=== PATIENT | male | born 1950 | race Caucasian/White ===

== ENCOUNTER 2019-08-07 06:32 | Inpatient (IN) ==
[2019-08-07] MEDS ORDERED: Ropivacaine/PF 0.5% 30 ML VIAL ONE ×2 (06:48→07:21)
[2019-08-07] MEDS ORDERED: ROPIVACAINE/PF/NS 0.25% 1 EACH SYRINGE INTRAART ONE ×2 (06:49→07:22)
[2019-08-07] MEDS ORDERED: Acetaminophen IV 1,000 MG/100 ML INFUS..BTL IVPB ONE (07:09)
[2019-08-07] MEDS ORDERED: Albuterol 2.5 MG/3 ML NEBULIZER IH PRN (07:10)
[2019-08-07] MEDS ORDERED: CeFAZolin Syr 2,000MG/20 ML 2,000 MG/20 ML SYRINGE IVPB ONE (07:10)
[2019-08-07] MEDS ORDERED: Celecoxib 100 MG CAPSULE PO ONE (07:11)
[2019-08-07] MEDS ORDERED: Pregabalin 75 MG CAPSULE PO ONE (07:11)
[2019-08-07] MEDS ORDERED: Ringers Solution, Lactated 1,000 ML IVC SCH ×3 (07:15→10:56)
[2019-08-07] MEDS ORDERED: *HR* Midazolam HCl 2 MG/2 ML VIAL ONE (07:17)
[2019-08-07] MEDS ORDERED: *HR* FentaNYL (PF) 100 MCG/2 ML VIAL ONE (07:17)
[2019-08-07] MEDS ORDERED: *HR* Propofol 200 MG/20 ML VIAL IVP ONE (07:17)
[2019-08-07] MEDS ORDERED: Ethanol\\Acetic Acid\\Na Ace\\Ben 1,000 ML IRRIG.SOLN IR ONE (07:18)
[2019-08-07] MEDS ORDERED: Ondansetron 4 MG/2 ML VIAL IVP ONE (07:19)
[2019-08-07] MEDS ORDERED: *HR* OxyCODONE Immed Rel 5 MG TABLET PO PRN ×2 (07:19→10:56)
[2019-08-07] MEDS ORDERED: Lidocaine -MPF 2% 2 ML VIAL ONE (07:19)
[2019-08-07] MEDS ORDERED: Lidocaine HCL 4 ML Topical Solution (Laryng-O-Jet Kit Sterile Pak) TP ONE (08:09)
[2019-08-07] MEDS ORDERED: *HR* Succinylcholine 200 MG/10 ML VIAL IVP ONE (08:13)
[2019-08-07] MEDS ORDERED: Dexamethasone 4 MG/ML VIAL ONE (08:20)
[2019-08-07] MEDS ORDERED: *HR* PHENYLEPHRINE 1,000 MCG/10 ML SYRINGE IVP ONE (08:20)
[2019-08-07] MEDS ORDERED: Ondansetron 4 MG/2 ML VIAL ONE (08:20)
[2019-08-07 10:22] LABS: Hematocrit 33.6 % (37.5-50.1)
[2019-08-07] MEDS ORDERED: D5% in Water 1,000 ML IVC PRN (10:56)
[2019-08-07] MEDS ORDERED: traMADol 50 MG TABLET PO PRN (10:56)
[2019-08-07] MEDS ORDERED: MOM Conc 10 ML UD.LIQ PO PRN (10:56)
[2019-08-07] MEDS ORDERED: Sennosides 8.6 MG TABLET PO PRN (10:56)
[2019-08-07] MEDS ORDERED: HALOPERIDOL DECANOATE IM SCH (10:56)
[2019-08-07] MEDS ORDERED: Pregabalin 50 MG CAPSULE PO SCH (10:56)
[2019-08-07] MEDS ORDERED: Temazepam 15 MG CAPSULE PO PRN (10:56)
[2019-08-07] MEDS ORDERED: Acetaminophen 325 MG TABLET PO PRN (10:56)
[2019-08-07] MEDS ORDERED: Ondansetron 4 MG/2 ML VIAL IVP PRN (10:56)
[2019-08-07] MEDS ORDERED: *HR* Dextrose 50 % in Water (Syg) 50 ML SYRINGE IVP PRN (10:56)
[2019-08-07] MEDS ORDERED: *HR* OxyCODONE/APAP 5/325 TABLET PO PRN (10:56)
[2019-08-07] MEDS ORDERED: Dextrose Gel 15 GM/37.5 ML TUBE PO PRN ×2 (10:56)
[2019-08-07] MEDS: ARIPiprazole 10 MG TABLET PO SCH (16:02)
[2019-08-07] MEDS: Aspirin Enteric Coated 81 MG Tablet PO SCH (16:02)
[2019-08-07] MEDS: cloNIDine HCl 0.1 MG TABLET PO SCH ×3 (16:02→22:09)
[2019-08-07] MEDS: Capsaicin 0.025% 60 GM TUBE TP SCH ×2 (16:03→23:03)
[2019-08-07] MEDS: Cholecalciferol (D-3) 1,000 UNIT (25MCG) TABLET PO SCH (16:03)
[2019-08-07] MEDS: Insulin LISPRO 300 UNITS/3 ML VIAL SQ SCH ×2 (16:03→16:26)
[2019-08-07] MEDS: Multivit/Ca/Min/Fe/FA 1 TAB TABLET PO SCH (16:03)
[2019-08-07] MEDS: *HR* Metformin 500 MG TABLET PO SCH (16:26)
[2019-08-07] MEDS: GlipiZIDE 5 MG TABLET PO SCH (16:26)
[2019-08-07] MEDS ORDERED: *HR* Enoxaparin 30 MG/0.3 ML SYRINGE SQ SCH (18:00)
[2019-08-07] MEDS ORDERED: Insulin LISPRO 300 UNITS/3 ML VIAL SQ SCH (21:00)
[2019-08-07] MEDS ORDERED: traZODone 50 MG TABLET PO SCH (21:00)
[2019-08-07] MEDS: Pregabalin 50 MG CAPSULE PO SCH (22:09)
[2019-08-07] MEDS: *HR* Enoxaparin 30 MG/0.3 ML SYRINGE SQ SCH (22:11)
[2019-08-08] MEDS: *HR* Enoxaparin 30 MG/0.3 ML SYRINGE SQ SCH (04:59)
[2019-08-08 05:57] LABS: Hematocrit 32.6 % (37.5-50.1); Hemoglobin 11.2 g/dL (12.9-16.9)
[2019-08-08 06:14] LABS: BUN/Creatinine Ratio 19 (6-26); Blood Urea Nitrogen 21 mg/dL (8-23); Calcium 9.3 mg/dL (8.6-10.3); Carbon Dioxide 30 mEq/L (23-29); Chloride 103 mEq/L (98-107); Glucose 149 mg/dL (70-105); Osmolality,Calculated 296 (280-300); Potassium 4.2 mEq/L (3.5-5.1); Sodium 140 mEq/L (136-145); eGFR For African Americans > 60 (> 60); eGFR For Non-African Americans > 60 (> 60)
[2019-08-08 06:49] VITALS: BP 124/78
[2019-08-08] MEDS: Pregabalin 50 MG CAPSULE PO SCH (07:52)
[2019-08-08] MEDS: Capsaicin 0.025% 60 GM TUBE TP SCH (07:52)
[2019-08-08] MEDS ORDERED: Pregabalin 50 MG CAPSULE PO SCH (08:00)
[2019-08-08] MEDS: Multivit/Ca/Min/Fe/FA 1 TAB TABLET PO SCH (08:12)
[2019-08-08] MEDS: GlipiZIDE 5 MG TABLET PO SCH (08:13)
[2019-08-08] MEDS: Cholecalciferol (D-3) 1,000 UNIT (25MCG) TABLET PO SCH (08:13)
[2019-08-08] MEDS: *HR* Metformin 500 MG TABLET PO SCH (08:13)
[2019-08-08] MEDS: ARIPiprazole 10 MG TABLET PO SCH (08:13)
[2019-08-08] MEDS: Aspirin Enteric Coated 81 MG Tablet PO SCH (08:13)
[2019-08-08] MEDS: cloNIDine HCl 0.1 MG TABLET PO SCH (08:13)
[2019-08-08] MEDS: Insulin LISPRO 300 UNITS/3 ML VIAL SQ SCH (08:14)
[2019-08-08] MEDS ORDERED: Tiotropium 18 MCG inhalation IH SCH (10:00)
== END 2019-08-08 12:55 | DRG 483 ==
LOC: SAMDAY 06:32 → 2ANU 09:51 → 3NENU 10:31
PROVIDERS: ADMIT Orthopaedic Surgery; ATTEND Orthopaedic Surgery

== ENCOUNTER 2020-01-15 05:46 | Inpatient (IN) ==
[2020-01-15] MEDS ORDERED: *HR* FentaNYL (PF) 100 MCG/2 ML VIAL IVP ONE ×2 (06:15→07:18)
[2020-01-15] MEDS ORDERED: *HR* Propofol 200 MG/20 ML VIAL IVP ONE (07:15)
[2020-01-15] MEDS ORDERED: 0.9 % Sodium Chloride 1,000 ML IVC STA (07:28)
[2020-01-15] MEDS ORDERED: Gentamicin 90 MG in 0.9 % Sodium Chloride 100 ML IVPB ONE (07:49)
[2020-01-15] MEDS ORDERED: ceFAZolin 1,000 MG in Water for inj. (sterile) 10 ML IVP ONE (07:49)
[2020-01-15 08:41] LABS: Basophils % 0.4 %; Eosinophils # 0.3 K/mcL (0.0-0.6); Eosinophils % 2.6 %; Hematocrit 31.6 % (37.5-50.1); Hemoglobin 10.1 g/dL (12.9-16.9); Immature Granulocytes % 0.3 % (0-4); Lymphocytes # 1.4 K/mcL (0.6-4.6); Lymphocytes % 13.4 %; Mean Corpuscular Hemoglobin 28.5 pg (28.0-33.3); Mean Corpuscular Volume 89.3 fL (83.0-100.0); Mean Platelet Volume 10.5 fL (9.4-12.4); Monocytes # 0.6 K/mcL (0.0-1.3); Neutrophils # 7.9 K/mcL (1.6-8.9); Platelet Count 225 K/mcL (140-400); Red Blood Count 3.54 M/mcL (4.19-5.50); Segmented Neutrophils % 77.3 %; White Blood Count 10.2 K/mcL (4.3-11.1)
[2020-01-15 08:57] LABS: BUN/Creatinine Ratio 27 (6-26); Blood Urea Nitrogen 31 mg/dL (8-23); Calcium 8.6 mg/dL (8.6-10.3); Carbon Dioxide 25 mEq/L (23-29); Chloride 109 mEq/L (98-107); Glucose 104 mg/dL (70-105); Osmolality,Calculated 297 (280-300); Potassium 4.3 mEq/L (3.5-5.1); Sodium 140 mEq/L (136-145); eGFR For African Americans > 60 (> 60); eGFR For Non-African Americans > 60 (> 60)
[2020-01-15] MEDS ORDERED: Ondansetron 4 MG/2 ML VIAL IVP PRN (10:18)
[2020-01-15] MEDS ORDERED: Naloxone 0.4 MG/ML INJ IVP PRN (10:18)
[2020-01-15] MEDS ORDERED: Dextrose Gel 15 GM/37.5 ML TUBE PO PRN ×2 (10:23)
[2020-01-15] MEDS ORDERED: D5% in Water 1,000 ML IVC PRN (10:23)
[2020-01-15] MEDS ORDERED: *HR* Dextrose 50 % in Water (Syg) 50 ML SYRINGE IVP PRN (10:23)
[2020-01-15 12:11] LABS: Estimated Average Glucose 143 mg/dl
[2020-01-15] MEDS: Insulin LISPRO 300 UNITS/3 ML VIAL SQ SCH ×3 (13:04→23:39)
[2020-01-15] MEDS: 0.9 % Sodium Chloride 1,000 ML IVC SCH (13:13)
[2020-01-15] MEDS ORDERED: Haloperidol Lactate 5 MG/ML VIAL IVP PRN (15:37)
[2020-01-15] MEDS: *HR* Heparin 5,000 UNIT/ML VIAL SQ SCH ×2 (18:16→23:39)
[2020-01-15] MEDS ORDERED: *HR* LORazepam 2 MG/ML VIAL IM STA (19:32)
[2020-01-15] MEDS ORDERED: *HR* HYDROmorphone (PF) 1 MG/ML SYRINGE IVP ONE ×2 (20:25)
[2020-01-15 22:07] LABS: Basophils % 0.4 %; Eosinophils % 0.4 %; Hemoglobin 10.6 g/dL (12.9-16.9); Immature Granulocytes % 0.4 % (0-4); Lymphocytes # 0.8 K/mcL (0.6-4.6); Lymphocytes % 9.2 %; Mean Corpuscular HGB Conc 32.1 g/dL (31.6-35.5); Mean Corpuscular Hemoglobin 27.9 pg (28.0-33.3); Mean Corpuscular Volume 86.8 fL (83.0-100.0); Mean Platelet Volume 10.1 fL (9.4-12.4); Monocytes # 0.7 K/mcL (0.0-1.3); Monocytes % 8.4 %; Neutrophils # 6.7 K/mcL (1.6-8.9); Platelet Count 235 K/mcL (140-400); Red Cell Distribution Width 15.8 % (11.5-14.5); Segmented Neutrophils % 81.2 %; White Blood Count 8.2 K/mcL (4.3-11.1)
[2020-01-15] MEDS ORDERED: Acetaminophen IV 1,000 MG/100 ML INFUS..BTL IVPB PRN (22:20)
[2020-01-15 22:29] LABS: Alanine Aminotransferase 9 Units/L (7-52); Albumin 3.7 g/dL (3.5-5.7); Albumin/Globulin Ratio 1.3 (1.1-2.2); Alkaline Phosphatase 171 Units/L (34-104); Aspartate Amino Transferase 14 Units/L (13-39); BUN/Creatinine Ratio 24 (6-26); Bilirubin,Total 0.5 mg/dL (0.3-1.0); Blood Urea Nitrogen 23 mg/dL (8-23); Calcium 9.1 mg/dL (8.6-10.3); Carbon Dioxide 24 mEq/L (23-29); Chloride 107 mEq/L (98-107); Globulin 2.8 g/dL (2.4-3.5); Glucose 145 mg/dL (70-105); Osmolality,Calculated 294 (280-300); Potassium 4.2 mEq/L (3.5-5.1); Sodium 139 mEq/L (136-145); Total Protein 6.5 g/dL (6.4-8.9); eGFR For African Americans > 60 (> 60); eGFR For Non-African Americans > 60 (> 60)
[2020-01-15] MEDS ORDERED: *HR* OxyCODONE Immed Rel 5 MG TABLET PO PRN (22:36)
[2020-01-15 22:42] LABS: Thyroid Stimulating Hormone 0.988 mcIU/mL (0.340-5.600)
[2020-01-16 02:49] LABS: Bilirubin,Urine Negative (Negative); Blood,Urine Negative (Negative); Clarity,Urine Clear (Clear); Color,Urine Yellow (Yellow); Glucose,Urine (UA) Normal (Normal); Ketones,Urine 15 mg/dL (Negative); Leukocyte Esterase,Urine Negative (Negative); Nitrite,Urine Negative (Negative); PH,Urine 6.5 pH Units (5.0-8.0); Protein,Urine Negative (Neg-Trace); Specific Gravity,Urine 1.021 (1.010-1.025); Urobilinogen,Urine Normal (Normal)
[2020-01-16 04:23] LABS: Basophils % 0.4 %; Eosinophils # 0.1 K/mcL (0.0-0.6); Eosinophils % 1.3 %; Hemoglobin 9.9 g/dL (12.9-16.9); Immature Granulocytes % 0.3 % (0-4); Lymphocytes # 1.1 K/mcL (0.6-4.6); Lymphocytes % 13.9 %; Mean Corpuscular HGB Conc 31.9 g/dL (31.6-35.5); Mean Corpuscular Hemoglobin 27.7 pg (28.0-33.3); Mean Corpuscular Volume 86.8 fL (83.0-100.0); Mean Platelet Volume 10.3 fL (9.4-12.4); Monocytes # 0.9 K/mcL (0.0-1.3); Monocytes % 12.1 %; Neutrophils # 5.5 K/mcL (1.6-8.9); Platelet Count 231 K/mcL (140-400); Red Blood Count 3.57 M/mcL (4.19-5.50); White Blood Count 7.6 K/mcL (4.3-11.1)
[2020-01-16 04:36] LABS: VBG HCO3 26 mEq/L (21-27); VBG PCO2 36 mmHg (41-51); VBG PH 7.47 pH Units (7.32-7.42); VBG PO2 117 mmHg (25-50)
[2020-01-16 04:43] LABS: BUN/Creatinine Ratio 21 (6-26); Blood Urea Nitrogen 23 mg/dL (8-23); Carbon Dioxide 26 mEq/L (23-29); Chloride 106 mEq/L (98-107); Glucose 118 mg/dL (70-105); Magnesium 1.5 mg/dL (1.6-2.6); Osmolality,Calculated 291 (280-300); Potassium 3.9 mEq/L (3.5-5.1); Sodium 138 mEq/L (136-145); eGFR For African Americans > 60 (> 60); eGFR For Non-African Americans > 60 (> 60)
[2020-01-16] MEDS: Insulin LISPRO 300 UNITS/3 ML VIAL SQ SCH ×3 (06:09→17:18)
[2020-01-16] MEDS: *HR* Heparin 5,000 UNIT/ML VIAL SQ SCH ×2 (09:59→17:18)
[2020-01-16] MEDS: Isosorbide MONOnitrate (24 HR) 30 MG TAB.ER.24H PO SCH (10:11)
[2020-01-16] MEDS: haloperidoL 5 MG TABLET PO SCH ×2 (10:11→14:44)
[2020-01-16] MEDS: ARIPiprazole 10 MG TABLET PO SCH (10:12)
[2020-01-16 10:48] LABS: ABG Base Excess 2 mEq/L (-2 to 3); ABG HCO3 27 mEq/L (21-27); ABG Oxygen Saturation 92 % (95-98); ABG PCO2 41 mmHg (35-45); ABG PH 7.43 pH Units (7.32-7.45); ABG PO2 62 mmHg (85-104); ABG TCO2 28 mEq/L (20-26)
[2020-01-16] MEDS ORDERED: Albuterol 2.5 MG/3 ML NEBULIZER IH PRN (10:53)
[2020-01-16] MEDS ORDERED: ROPIVACAINE/PF/NS 0.25% 1 EACH SYRINGE INTRAART ONE (12:53)
[2020-01-16] MEDS ORDERED: Ropivacaine/PF 0.5% 30 ML VIAL ONE (12:53)
[2020-01-16] MEDS ORDERED: *HR* Labetalol 20 MG/4 ML SYRINGE IVP PRN (12:56)
[2020-01-16] MEDS ORDERED: *HR* HYDROmorphone (PF) 1 MG/ML SYRINGE IVP PRN (12:56)
[2020-01-16] MEDS ORDERED: *HR* Promethazine 25 MG/ML VIAL IVP PRN (12:56)
[2020-01-16] MEDS ORDERED: Ondansetron 4 MG/2 ML VIAL IVP PRN (12:56)
[2020-01-16] MEDS: 0.9 % Sodium Chloride 1,000 ML IVC SCH (13:00)
[2020-01-16] MEDS ORDERED: *HR* FentaNYL (PF) 100 MCG/2 ML VIAL ONE (13:13)
[2020-01-16] MEDS ORDERED: *HR* Propofol 200 MG/20 ML VIAL IVP ONE (13:13)
[2020-01-16] MEDS ORDERED: *HR* Midazolam HCl 2 MG/2 ML VIAL ONE (13:13)
[2020-01-16] MEDS ORDERED: Dexamethasone 4 MG/ML VIAL ONE (13:14)
[2020-01-16] MEDS ORDERED: Ondansetron 4 MG/2 ML VIAL ONE (13:14)
[2020-01-16] MEDS ORDERED: Lidocaine -MPF 1% 5 ML AMPUL ONE (13:14)
[2020-01-16] MEDS: cloNIDine HCL 0.1 MG TABLET PO SCH ×2 (14:44→19:54)
[2020-01-16] MEDS: Tiotropium 18 MCG inhalation IH SCH (19:50)
[2020-01-16] MEDS ORDERED: haloperidoL 5 MG TABLET PO SCH (21:00)
[2020-01-17] MEDS: *HR* Heparin 5,000 UNIT/ML VIAL SQ SCH ×4 (01:01→23:05)
[2020-01-17] MEDS: Insulin LISPRO 300 UNITS/3 ML VIAL SQ SCH ×4 (01:03→21:19)
[2020-01-17] MEDS ORDERED: Lidocaine -MPF 2% 2 ML VIAL ONE (08:55)
[2020-01-17] MEDS ORDERED: Ondansetron 4 MG/2 ML VIAL ONE (08:55)
[2020-01-17] MEDS ORDERED: *HR* FentaNYL (PF) 100 MCG/2 ML VIAL ONE (08:55)
[2020-01-17] MEDS ORDERED: Dexamethasone 4 MG/ML VIAL ONE (08:55)
[2020-01-17] MEDS ORDERED: *HR* Midazolam HCl 2 MG/2 ML VIAL ONE (08:55)
[2020-01-17] MEDS ORDERED: *HR* Propofol 200 MG/20 ML VIAL IVP ONE (08:55)
[2020-01-17] MEDS ORDERED: PARoxetine 30 MG TABLET PO SCH (09:00)
[2020-01-17] MEDS ORDERED: Metoprolol XL (24 HR) Succ 25 MG TAB.ER.24H PO SCH (09:00)
[2020-01-17] MEDS: Isosorbide MONOnitrate (24 HR) 30 MG TAB.ER.24H PO SCH (09:03)
[2020-01-17] MEDS: haloperidoL 5 MG TABLET PO SCH ×3 (09:03→21:03)
[2020-01-17] MEDS: cloNIDine HCL 0.1 MG TABLET PO SCH ×3 (09:03→21:01)
[2020-01-17] MEDS: ARIPiprazole 10 MG TABLET PO SCH (09:05)
[2020-01-17] MEDS ORDERED: CeFAZolin Syr 2,000MG/20 ML 2,000 MG/20 ML SYRINGE IVPB ONE (09:39)
[2020-01-17] MEDS ORDERED: *HR* Succinylcholine 200 MG/10 ML VIAL IVP ONE (09:53)
[2020-01-17] MEDS ORDERED: Lidocaine HCL 4 ML Topical Solution (Laryng-O-Jet Kit Sterile Pak) TP ONE (09:55)
[2020-01-17] MEDS ORDERED: *HR* PHENYLEPHRINE 1,000 MCG/10 ML SYRINGE IVP ONE (10:16)
[2020-01-17] MEDS ORDERED: Naloxone 0.4 MG/ML INJ IVP PRN (13:14)
[2020-01-17] MEDS ORDERED: Dextrose Gel 15 GM/37.5 ML TUBE PO PRN ×4 (13:14→16:52)
[2020-01-17] MEDS ORDERED: D5% in Water 1,000 ML IVC PRN ×2 (13:14→16:52)
[2020-01-17] MEDS ORDERED: Ondansetron 4 MG/2 ML VIAL IVP PRN ×2 (13:14)
[2020-01-17] MEDS ORDERED: Acetaminophen IV 1,000 MG/100 ML INFUS..BTL IVPB PRN (13:14)
[2020-01-17] MEDS ORDERED: *HR* Labetalol 20 MG/4 ML SYRINGE IVP PRN (13:14)
[2020-01-17] MEDS ORDERED: Albuterol 2.5 MG/3 ML NEBULIZER IH PRN (13:14)
[2020-01-17] MEDS ORDERED: *HR* Dextrose 50 % in Water (Syg) 50 ML SYRINGE IVP PRN ×2 (13:14→16:52)
[2020-01-17] MEDS ORDERED: *HR* Promethazine 25 MG/ML VIAL IVP PRN (13:14)
[2020-01-17] MEDS ORDERED: Haloperidol Lactate 5 MG/ML VIAL IVP PRN (13:14)
[2020-01-17] MEDS ORDERED: haloperidoL 5 MG TABLET PO ONE (15:06)
[2020-01-17] MEDS ORDERED: Acetaminophen 325 MG TABLET PO PRN (17:04)
[2020-01-17] MEDS ORDERED: Capsaicin 0.025% 60 GM TUBE TP PRN (17:37)
[2020-01-17] MEDS ORDERED: Insulin LISPRO 300 UNITS/3 ML VIAL SQ SCH (18:00)
[2020-01-17] MEDS: polyethylene glycoL 3350 17 GM POWD.PACK PO SCH (18:16)
[2020-01-17] MEDS: amLODIPine 5 MG TABLET PO SCH (18:16)
[2020-01-17] MEDS: Tiotropium 18 MCG inhalation IH SCH (20:52)
[2020-01-17] MEDS: traZODone 50 MG TABLET PO SCH (21:02)
[2020-01-17] MEDS: Ammonium Lactate 30 APPL/225 GM BOTTLE TP SCH (21:03)
[2020-01-17] MEDS: Pregabalin 50 MG CAPSULE PO SCH (23:05)
[2020-01-18 04:38] LABS: Basophils % 0.2 %; Eosinophils % 0.1 %; Hematocrit 27.8 % (37.5-50.1); Hemoglobin 8.9 g/dL (12.9-16.9); Immature Granulocytes % 0.5 % (0-4); Lymphocytes # 1.1 K/mcL (0.6-4.6); Lymphocytes % 10.8 %; Mean Corpuscular Hemoglobin 27.7 pg (28.0-33.3); Mean Corpuscular Volume 86.6 fL (83.0-100.0); Mean Platelet Volume 10.3 fL (9.4-12.4); Monocytes % 9.7 %; Neutrophils # 8.1 K/mcL (1.6-8.9); Platelet Count 242 K/mcL (140-400); Red Blood Count 3.21 M/mcL (4.19-5.50); Red Cell Distribution Width 15.9 % (11.5-14.5); Segmented Neutrophils % 78.7 %; White Blood Count 10.2 K/mcL (4.3-11.1)
[2020-01-18 04:56] LABS: % Iron Saturation 5 % (20-55); BUN/Creatinine Ratio 17 (6-26); Blood Urea Nitrogen 16 mg/dL (8-23); Calcium 8.8 mg/dL (8.6-10.3); Carbon Dioxide 26 mEq/L (23-29); Chloride 106 mEq/L (98-107); Glucose 129 mg/dL (70-105); Iron 12 mcg/dL (65-175); Magnesium 1.7 mg/dL (1.6-2.6); Osmolality,Calculated 283 (280-300); Potassium 3.9 mEq/L (3.5-5.1); Sodium 135 mEq/L (136-145); Transferrin 165 mg/dL (203-362); eGFR For African Americans > 60 (> 60); eGFR For Non-African Americans > 60 (> 60)
[2020-01-18 05:13] LABS: Ferritin 146 ng/mL (20-250)
[2020-01-18 05:19] LABS: Folate 5.6 ng/mL (3.0-16.0)
[2020-01-18] MEDS: Metoprolol XL (24 HR) Succ 25 MG TAB.ER.24H PO SCH (08:24)
[2020-01-18] MEDS: *HR* Heparin 5,000 UNIT/ML VIAL SQ SCH ×2 (08:25→17:02)
[2020-01-18] MEDS: haloperidoL 5 MG TABLET PO SCH ×3 (08:26→20:32)
[2020-01-18] MEDS: PARoxetine 30 MG TABLET PO SCH (08:27)
[2020-01-18] MEDS: amLODIPine 5 MG TABLET PO SCH (08:27)
[2020-01-18] MEDS: Multivit/Ca/Min/Fe/FA 1 TAB TABLET PO SCH (08:27)
[2020-01-18] MEDS: Cholecalciferol (D-3) 1,000 UNIT (25MCG) TABLET PO SCH (08:27)
[2020-01-18] MEDS: cloNIDine HCL 0.1 MG TABLET PO SCH (08:28)
[2020-01-18] MEDS: ARIPiprazole 10 MG TABLET PO SCH (08:28)
[2020-01-18] MEDS: Isosorbide MONOnitrate (24 HR) 30 MG TAB.ER.24H PO SCH (08:29)
[2020-01-18] MEDS: Aspirin 81 MG TAB.CHEW PO SCH (08:30)
[2020-01-18] MEDS: Pregabalin 50 MG CAPSULE PO SCH ×3 (08:34→20:32)
[2020-01-18] MEDS ORDERED: lisinopriL 5 MG TABLET PO SCH (09:00)
[2020-01-18] MEDS: Insulin LISPRO 300 UNITS/3 ML VIAL SQ SCH ×4 (10:06→21:32)
[2020-01-18] MEDS: Ammonium Lactate 30 APPL/225 GM BOTTLE TP SCH ×2 (10:14→20:35)
[2020-01-18] MEDS ORDERED: 0.9 % Sodium Chloride 1,000 ML ONE (14:26)
[2020-01-18] MEDS ORDERED: 0.9 % Sodium Chloride 1,000 ML IV ONE (14:27)
[2020-01-18] MEDS ORDERED: 0.9 % Sodium Chloride 500 ML ONE (14:52)
[2020-01-18 15:11] LABS: Hematocrit 25.2 % (37.5-50.1); Hemoglobin 8.1 g/dL (12.9-16.9)
[2020-01-18] MEDS ORDERED: Iron Sucrose Complex 200 MG in 0.9 % Sodium Chloride 100 ML IVPB ONE (15:20)
[2020-01-18] MEDS ORDERED: 0.9 % Sodium Chloride 500 ML IV ONE (15:44)
[2020-01-18] MEDS: traZODone 50 MG TABLET PO SCH (20:32)
[2020-01-18] MEDS: Tiotropium 18 MCG inhalation IH SCH (20:37)
[2020-01-19] MEDS: *HR* Heparin 5,000 UNIT/ML VIAL SQ SCH ×3 (00:05→18:30)
[2020-01-19 01:39] LABS: Basophils % 0.2 %; Eosinophils # 0.1 K/mcL (0.0-0.6); Eosinophils % 0.8 %; Hematocrit 26.1 % (37.5-50.1); Hemoglobin 8.4 g/dL (12.9-16.9); Immature Granulocytes % 0.5 % (0-4); Lymphocytes # 1.1 K/mcL (0.6-4.6); Lymphocytes % 12.8 %; Mean Corpuscular HGB Conc 32.2 g/dL (31.6-35.5); Mean Corpuscular Hemoglobin 28.7 pg (28.0-33.3); Mean Corpuscular Volume 89.1 fL (83.0-100.0); Mean Platelet Volume 10.3 fL (9.4-12.4); Monocytes # 0.8 K/mcL (0.0-1.3); Monocytes % 9.9 %; Neutrophils # 6.3 K/mcL (1.6-8.9); Platelet Count 257 K/mcL (140-400); Red Blood Count 2.93 M/mcL (4.19-5.50); Red Cell Distribution Width 16.1 % (11.5-14.5); Segmented Neutrophils % 75.8 %; White Blood Count 8.3 K/mcL (4.3-11.1)
[2020-01-19 01:55] LABS: BUN/Creatinine Ratio 19 (6-26); Blood Urea Nitrogen 20 mg/dL (8-23); Calcium 8.3 mg/dL (8.6-10.3); Carbon Dioxide 24 mEq/L (23-29); Chloride 109 mEq/L (98-107); Glucose 126 mg/dL (70-105); Magnesium 1.6 mg/dL (1.6-2.6); Osmolality,Calculated 292 (280-300); Potassium 3.9 mEq/L (3.5-5.1); Sodium 139 mEq/L (136-145); eGFR For African Americans > 60 (> 60); eGFR For Non-African Americans > 60 (> 60)
[2020-01-19] MEDS: Cholecalciferol (D-3) 1,000 UNIT (25MCG) TABLET PO SCH (07:59)
[2020-01-19] MEDS: ARIPiprazole 10 MG TABLET PO SCH (08:00)
[2020-01-19] MEDS: Isosorbide MONOnitrate (24 HR) 30 MG TAB.ER.24H PO SCH (08:00)
[2020-01-19] MEDS: Aspirin 81 MG TAB.CHEW PO SCH (08:00)
[2020-01-19] MEDS: Metoprolol XL (24 HR) Succ 25 MG TAB.ER.24H PO SCH (08:00)
[2020-01-19] MEDS: PARoxetine 30 MG TABLET PO SCH (08:00)
[2020-01-19] MEDS: Multivit/Ca/Min/Fe/FA 1 TAB TABLET PO SCH (08:01)
[2020-01-19] MEDS: haloperidoL 5 MG TABLET PO SCH ×2 (08:01→21:35)
[2020-01-19] MEDS: Insulin LISPRO 300 UNITS/3 ML VIAL SQ SCH ×4 (08:04→21:21)
[2020-01-19] MEDS: Ammonium Lactate 30 APPL/225 GM BOTTLE TP SCH ×2 (08:04→21:36)
[2020-01-19] MEDS: Pregabalin 50 MG CAPSULE PO SCH ×3 (08:06→21:34)
[2020-01-19] MEDS: cloNIDine HCL 0.1 MG TABLET PO SCH ×3 (10:18→21:34)
[2020-01-19] MEDS ORDERED: Furosemide 40 MG/4 ML VIAL IVP ONE (12:54)
[2020-01-19] MEDS: polyethylene glycoL 3350 17 GM POWD.PACK PO SCH (18:30)
[2020-01-19] MEDS: Tiotropium 18 MCG inhalation IH SCH (21:19)
[2020-01-19] MEDS: traZODone 50 MG TABLET PO SCH (21:34)
[2020-01-20] MEDS: *HR* Heparin 5,000 UNIT/ML VIAL SQ SCH ×3 (01:09→17:01)
[2020-01-20] MEDS: Cholecalciferol (D-3) 1,000 UNIT (25MCG) TABLET PO SCH (08:05)
[2020-01-20] MEDS: ARIPiprazole 10 MG TABLET PO SCH (08:05)
[2020-01-20] MEDS: cloNIDine HCL 0.1 MG TABLET PO SCH ×3 (08:05→20:30)
[2020-01-20] MEDS: Metoprolol XL (24 HR) Succ 25 MG TAB.ER.24H PO SCH (08:06)
[2020-01-20] MEDS: Isosorbide MONOnitrate (24 HR) 30 MG TAB.ER.24H PO SCH (08:06)
[2020-01-20] MEDS: Multivit/Ca/Min/Fe/FA 1 TAB TABLET PO SCH (08:06)
[2020-01-20] MEDS: PARoxetine 30 MG TABLET PO SCH (08:07)
[2020-01-20] MEDS: Insulin LISPRO 300 UNITS/3 ML VIAL SQ SCH ×4 (08:07→20:27)
[2020-01-20] MEDS: Aspirin 81 MG TAB.CHEW PO SCH (08:07)
[2020-01-20] MEDS: Pregabalin 50 MG CAPSULE PO SCH ×3 (08:14→20:31)
[2020-01-20] MEDS: haloperidoL 5 MG TABLET PO SCH ×3 (08:22→20:30)
[2020-01-20] MEDS: Sennosides/Docusate Sodium TABLET PO SCH ×2 (08:26→20:30)
[2020-01-20] MEDS: Ammonium Lactate 30 APPL/225 GM BOTTLE TP SCH ×2 (14:20→20:32)
[2020-01-20] MEDS: Tiotropium 18 MCG inhalation IH SCH (14:21)
[2020-01-20] MEDS: traZODone 50 MG TABLET PO SCH (20:31)
[2020-01-21] MEDS: *HR* Heparin 5,000 UNIT/ML VIAL SQ SCH ×3 (00:20→15:30)
[2020-01-21 01:11] LABS: Basophils % 0.2 %; Eosinophils # 0.2 K/mcL (0.0-0.6); Eosinophils % 2.7 %; Hematocrit 27.1 % (37.5-50.1); Hemoglobin 8.8 g/dL (12.9-16.9); Immature Granulocytes % 0.5 % (0-4); Lymphocytes # 1.5 K/mcL (0.6-4.6); Mean Corpuscular HGB Conc 32.5 g/dL (31.6-35.5); Mean Corpuscular Hemoglobin 28.7 pg (28.0-33.3); Mean Corpuscular Volume 88.3 fL (83.0-100.0); Mean Platelet Volume 10.1 fL (9.4-12.4); Monocytes # 0.8 K/mcL (0.0-1.3); Monocytes % 9.6 %; Neutrophils # 5.5 K/mcL (1.6-8.9); Platelet Count 299 K/mcL (140-400); Red Blood Count 3.07 M/mcL (4.19-5.50); Red Cell Distribution Width 15.8 % (11.5-14.5); White Blood Count 8.1 K/mcL (4.3-11.1)
[2020-01-21 01:32] LABS: BUN/Creatinine Ratio 20 (6-26); Blood Urea Nitrogen 17 mg/dL (8-23); Calcium 8.9 mg/dL (8.6-10.3); Carbon Dioxide 25 mEq/L (23-29); Chloride 104 mEq/L (98-107); Glucose 134 mg/dL (70-105); Magnesium 1.5 mg/dL (1.6-2.6); Osmolality,Calculated 288 (280-300); Potassium 3.7 mEq/L (3.5-5.1); Sodium 137 mEq/L (136-145); eGFR For African Americans > 60 (> 60); eGFR For Non-African Americans > 60 (> 60)
[2020-01-21] MEDS: ARIPiprazole 10 MG TABLET PO SCH (08:54)
[2020-01-21] MEDS: PARoxetine 30 MG TABLET PO SCH (08:55)
[2020-01-21] MEDS: cloNIDine HCL 0.1 MG TABLET PO SCH ×3 (08:55→20:47)
[2020-01-21] MEDS: Cholecalciferol (D-3) 1,000 UNIT (25MCG) TABLET PO SCH (08:55)
[2020-01-21] MEDS: Sennosides/Docusate Sodium TABLET PO SCH ×2 (08:55→20:48)
[2020-01-21] MEDS: Multivit/Ca/Min/Fe/FA 1 TAB TABLET PO SCH (08:55)
[2020-01-21] MEDS: Insulin LISPRO 300 UNITS/3 ML VIAL SQ SCH ×4 (08:56→20:46)
[2020-01-21] MEDS: haloperidoL 5 MG TABLET PO SCH ×3 (08:56→20:48)
[2020-01-21] MEDS: Isosorbide MONOnitrate (24 HR) 30 MG TAB.ER.24H PO SCH (08:56)
[2020-01-21] MEDS: Aspirin 81 MG TAB.CHEW PO SCH (08:56)
[2020-01-21] MEDS: Metoprolol XL (24 HR) Succ 25 MG TAB.ER.24H PO SCH (08:56)
[2020-01-21] MEDS: Ammonium Lactate 30 APPL/225 GM BOTTLE TP SCH ×2 (10:26→20:48)
[2020-01-21] MEDS: Pregabalin 50 MG CAPSULE PO SCH ×3 (12:09→20:48)
[2020-01-21] MEDS ORDERED: Lactulose Oral Soln 20 GM/30 ML UDC PO ONE (14:47)
[2020-01-21] MEDS: polyethylene glycoL 3350 17 GM POWD.PACK PO SCH (17:33)
[2020-01-21] MEDS: Tiotropium 18 MCG inhalation IH SCH (20:01)
[2020-01-21] MEDS: traZODone 50 MG TABLET PO SCH (20:48)
[2020-01-22] MEDS: *HR* Heparin 5,000 UNIT/ML VIAL SQ SCH ×4 (00:05→22:05)
[2020-01-22 01:33] LABS: Basophils % 0.5 %; Eosinophils # 0.3 K/mcL (0.0-0.6); Eosinophils % 2.8 %; Hematocrit 30.2 % (37.5-50.1); Hemoglobin 9.8 g/dL (12.9-16.9); Immature Granulocytes % 0.7 % (0-4); Lymphocytes % 22.3 %; Mean Corpuscular HGB Conc 32.5 g/dL (31.6-35.5); Mean Corpuscular Hemoglobin 28.5 pg (28.0-33.3); Mean Corpuscular Volume 87.8 fL (83.0-100.0); Mean Platelet Volume 9.8 fL (9.4-12.4); Monocytes # 0.8 K/mcL (0.0-1.3); Monocytes % 8.8 %; Neutrophils # 5.8 K/mcL (1.6-8.9); Platelet Count 338 K/mcL (140-400); Red Blood Count 3.44 M/mcL (4.19-5.50); Red Cell Distribution Width 15.8 % (11.5-14.5); Segmented Neutrophils % 64.9 %; White Blood Count 8.9 K/mcL (4.3-11.1)
[2020-01-22 01:51] LABS: BUN/Creatinine Ratio 16 (6-26); Blood Urea Nitrogen 14 mg/dL (8-23); Carbon Dioxide 26 mEq/L (23-29); Chloride 102 mEq/L (98-107); Glucose 120 mg/dL (70-105); Magnesium 1.8 mg/dL (1.6-2.6); Osmolality,Calculated 286 (280-300); Potassium 4.2 mEq/L (3.5-5.1); Sodium 137 mEq/L (136-145); eGFR For African Americans > 60 (> 60); eGFR For Non-African Americans > 60 (> 60)
[2020-01-22] MEDS: ARIPiprazole 10 MG TABLET PO SCH (07:52)
[2020-01-22] MEDS: Metoprolol XL (24 HR) Succ 25 MG TAB.ER.24H PO SCH (07:53)
[2020-01-22] MEDS: Isosorbide MONOnitrate (24 HR) 30 MG TAB.ER.24H PO SCH (07:53)
[2020-01-22] MEDS: cloNIDine HCL 0.1 MG TABLET PO SCH ×3 (07:53→21:22)
[2020-01-22] MEDS: haloperidoL 5 MG TABLET PO SCH ×3 (07:55→21:22)
[2020-01-22] MEDS: Cholecalciferol (D-3) 1,000 UNIT (25MCG) TABLET PO SCH (07:56)
[2020-01-22] MEDS: PARoxetine 30 MG TABLET PO SCH (07:56)
[2020-01-22] MEDS: Sennosides/Docusate Sodium TABLET PO SCH ×2 (07:57→21:22)
[2020-01-22] MEDS: Aspirin 81 MG TAB.CHEW PO SCH (07:57)
[2020-01-22] MEDS: Multivit/Ca/Min/Fe/FA 1 TAB TABLET PO SCH (07:57)
[2020-01-22] MEDS: Pregabalin 50 MG CAPSULE PO SCH ×3 (07:57→22:05)
[2020-01-22] MEDS: Insulin LISPRO 300 UNITS/3 ML VIAL SQ SCH ×4 (07:57→20:58)
[2020-01-22] MEDS: Ammonium Lactate 30 APPL/225 GM BOTTLE TP SCH ×2 (07:58→21:23)
[2020-01-22] MEDS: traZODone 50 MG TABLET PO SCH (21:22)
[2020-01-23 05:05] LABS: Basophils % 0.4 %; Eosinophils # 0.3 K/mcL (0.0-0.6); Eosinophils % 3.5 %; Hematocrit 31.4 % (37.5-50.1); Hemoglobin 9.8 g/dL (12.9-16.9); Immature Granulocytes % 0.8 % (0-4); Lymphocytes # 1.6 K/mcL (0.6-4.6); Lymphocytes % 18.4 %; Mean Corpuscular HGB Conc 31.2 g/dL (31.6-35.5); Mean Corpuscular Hemoglobin 27.3 pg (28.0-33.3); Mean Corpuscular Volume 87.5 fL (83.0-100.0); Mean Platelet Volume 9.9 fL (9.4-12.4); Monocytes # 0.8 K/mcL (0.0-1.3); Monocytes % 9.1 %; Neutrophils # 5.8 K/mcL (1.6-8.9); Platelet Count 376 K/mcL (140-400); Red Blood Count 3.59 M/mcL (4.19-5.50); Segmented Neutrophils % 67.8 %; White Blood Count 8.5 K/mcL (4.3-11.1)
[2020-01-23 05:20] LABS: BUN/Creatinine Ratio 16 (6-26); Blood Urea Nitrogen 15 mg/dL (8-23); Calcium 9.2 mg/dL (8.6-10.3); Carbon Dioxide 27 mEq/L (23-29); Chloride 104 mEq/L (98-107); Glucose 129 mg/dL (70-105); Magnesium 1.8 mg/dL (1.6-2.6); Osmolality,Calculated 289 (280-300); Sodium 138 mEq/L (136-145); eGFR For African Americans > 60 (> 60); eGFR For Non-African Americans > 60 (> 60)
[2020-01-23] MEDS: Isosorbide MONOnitrate (24 HR) 30 MG TAB.ER.24H PO SCH (07:46)
[2020-01-23] MEDS: cloNIDine HCL 0.1 MG TABLET PO SCH ×3 (07:47→20:38)
[2020-01-23] MEDS: ARIPiprazole 10 MG TABLET PO SCH (07:47)
[2020-01-23] MEDS: Multivit/Ca/Min/Fe/FA 1 TAB TABLET PO SCH (07:47)
[2020-01-23] MEDS: Cholecalciferol (D-3) 1,000 UNIT (25MCG) TABLET PO SCH (07:47)
[2020-01-23] MEDS: Sennosides/Docusate Sodium TABLET PO SCH ×2 (07:47→20:38)
[2020-01-23] MEDS: PARoxetine 30 MG TABLET PO SCH (07:47)
[2020-01-23] MEDS: *HR* Heparin 5,000 UNIT/ML VIAL SQ SCH ×3 (07:48→23:29)
[2020-01-23] MEDS: Metoprolol XL (24 HR) Succ 25 MG TAB.ER.24H PO SCH (07:48)
[2020-01-23] MEDS: Aspirin 81 MG TAB.CHEW PO SCH (07:48)
[2020-01-23] MEDS: Ammonium Lactate 30 APPL/225 GM BOTTLE TP SCH ×2 (07:49→20:38)
[2020-01-23] MEDS: Insulin LISPRO 300 UNITS/3 ML VIAL SQ SCH ×4 (07:49→20:38)
[2020-01-23] MEDS: Pregabalin 50 MG CAPSULE PO SCH ×3 (07:59→20:38)
[2020-01-23] MEDS: haloperidoL 5 MG TABLET PO SCH ×2 (08:10→20:38)
[2020-01-23] MEDS: haloperidoL 1 MG TABLET PO SCH (12:51)
[2020-01-23] MEDS ORDERED: Tdap (Boostrix) Vaccine 0.5 ML SYRINGE IM ONE (13:55)
[2020-01-23] MEDS: polyethylene glycoL 3350 17 GM POWD.PACK PO SCH (17:21)
[2020-01-23] MEDS: traZODone 50 MG TABLET PO SCH (20:38)
[2020-01-24] MEDS: Tiotropium 18 MCG inhalation IH SCH (08:00)
[2020-01-24] MEDS: Insulin LISPRO 300 UNITS/3 ML VIAL SQ SCH ×4 (08:03→20:29)
[2020-01-24] MEDS: Aspirin 81 MG TAB.CHEW PO SCH (08:04)
[2020-01-24] MEDS: *HR* Heparin 5,000 UNIT/ML VIAL SQ SCH ×2 (08:04→16:58)
[2020-01-24] MEDS: Cholecalciferol (D-3) 1,000 UNIT (25MCG) TABLET PO SCH (08:05)
[2020-01-24] MEDS: Pregabalin 50 MG CAPSULE PO SCH ×2 (08:05→16:58)
[2020-01-24] MEDS: Sennosides/Docusate Sodium TABLET PO SCH (08:05)
[2020-01-24] MEDS: Multivit/Ca/Min/Fe/FA 1 TAB TABLET PO SCH (08:05)
[2020-01-24] MEDS: PARoxetine 30 MG TABLET PO SCH (08:06)
[2020-01-24] MEDS: Metoprolol XL (24 HR) Succ 25 MG TAB.ER.24H PO SCH (09:49)
[2020-01-24] MEDS: ARIPiprazole 10 MG TABLET PO SCH (09:50)
[2020-01-24] MEDS: haloperidoL 1 MG TABLET PO SCH ×2 (09:50→13:34)
[2020-01-24] MEDS: Isosorbide MONOnitrate (24 HR) 30 MG TAB.ER.24H PO SCH (09:50)
[2020-01-24] MEDS: Ammonium Lactate 30 APPL/225 GM BOTTLE TP SCH (09:51)
[2020-01-24] MEDS: cloNIDine HCL 0.1 MG TABLET PO SCH ×2 (09:51→16:58)
[2020-01-24] MEDS ORDERED: *HR* FentaNYL (PF) 100 MCG/2 ML VIAL ONE (10:11)
[2020-01-24] MEDS ORDERED: Lidocaine -MPF 2% 2 ML VIAL ONE ×2 (10:11)
[2020-01-24] MEDS ORDERED: *HR* Midazolam HCl 2 MG/2 ML VIAL ONE (10:11)
[2020-01-24] MEDS ORDERED: Dexamethasone 4 MG/ML VIAL ONE (10:11)
[2020-01-24] MEDS ORDERED: Ondansetron 4 MG/2 ML VIAL ONE (10:11)
[2020-01-24] MEDS ORDERED: *HR* Propofol 200 MG/20 ML VIAL IVP ONE (10:11)
[2020-01-24] MEDS ORDERED: Haloperidol Lactate 5 MG/ML VIAL IVP PRN (17:20)
[2020-01-25 01:12] LABS: Basophils % 0.3 %; Eosinophils # 0.1 K/mcL (0.0-0.6); Eosinophils % 0.8 %; Hematocrit 32.5 % (37.5-50.1); Hemoglobin 10.6 g/dL (12.9-16.9); Immature Granulocytes % 0.9 % (0-4); Lymphocytes # 1.3 K/mcL (0.6-4.6); Lymphocytes % 13.6 %; Mean Corpuscular HGB Conc 32.6 g/dL (31.6-35.5); Mean Corpuscular Hemoglobin 28.4 pg (28.0-33.3); Mean Corpuscular Volume 87.1 fL (83.0-100.0); Mean Platelet Volume 10.1 fL (9.4-12.4); Monocytes # 1.1 K/mcL (0.0-1.3); Monocytes % 10.8 %; Neutrophils # 7.2 K/mcL (1.6-8.9); Platelet Count 396 K/mcL (140-400); Red Blood Count 3.73 M/mcL (4.19-5.50); Red Cell Distribution Width 15.4 % (11.5-14.5); Segmented Neutrophils % 73.6 %; White Blood Count 9.8 K/mcL (4.3-11.1)
[2020-01-25 01:32] LABS: BUN/Creatinine Ratio 15 (6-26); Blood Urea Nitrogen 14 mg/dL (8-23); Calcium 9.3 mg/dL (8.6-10.3); Carbon Dioxide 26 mEq/L (23-29); Chloride 101 mEq/L (98-107); Glucose 152 mg/dL (70-105); Magnesium 1.6 mg/dL (1.6-2.6); Osmolality,Calculated 285 (280-300); Phosphorous 2.8 mg/dL (2.7-4.5); Potassium 3.7 mEq/L (3.5-5.1); Sodium 136 mEq/L (136-145); eGFR For African Americans > 60 (> 60); eGFR For Non-African Americans > 60 (> 60)
[2020-01-25] MEDS: *HR* Heparin 5,000 UNIT/ML VIAL SQ SCH ×2 (06:21→09:21)
[2020-01-25] MEDS: PARoxetine 30 MG TABLET PO SCH (09:14)
[2020-01-25] MEDS: ARIPiprazole 10 MG TABLET PO SCH (09:14)
[2020-01-25] MEDS: Metoprolol XL (24 HR) Succ 25 MG TAB.ER.24H PO SCH (09:15)
[2020-01-25] MEDS: Isosorbide MONOnitrate (24 HR) 30 MG TAB.ER.24H PO SCH (09:18)
[2020-01-25] MEDS: Ammonium Lactate 30 APPL/225 GM BOTTLE TP SCH (09:19)
[2020-01-25] MEDS: cloNIDine HCL 0.1 MG TABLET PO SCH (09:19)
[2020-01-25] MEDS: Insulin LISPRO 300 UNITS/3 ML VIAL SQ SCH (09:20)
[2020-01-25] MEDS: Sennosides/Docusate Sodium TABLET PO SCH (09:20)
[2020-01-25] MEDS: haloperidoL 1 MG TABLET PO SCH (09:21)
[2020-01-25] MEDS: Aspirin 81 MG TAB.CHEW PO SCH (09:22)
[2020-01-25] MEDS: Multivit/Ca/Min/Fe/FA 1 TAB TABLET PO SCH (09:28)
[2020-01-25] MEDS: Cholecalciferol (D-3) 1,000 UNIT (25MCG) TABLET PO SCH (09:28)
[2020-01-25] MEDS: Pregabalin 50 MG CAPSULE PO SCH (09:30)
[2020-01-25] MEDS ORDERED: *HR* Propofol 200 MG/20 ML VIAL IVP ONE (11:17)
[2020-01-25] MEDS ORDERED: *HR* FentaNYL (PF) 100 MCG/2 ML VIAL ONE ×2 (11:17→12:23)
[2020-01-25] MEDS ORDERED: Lidocaine -MPF 2% 2 ML VIAL ONE (11:19)
[2020-01-25] MEDS ORDERED: CeFAZolin Syr 2,000MG/20 ML 2,000 MG/20 ML SYRINGE IVPB ONE (11:39)
[2020-01-25] MEDS ORDERED: Famotidine 20 MG/2 ML VIAL ONE (11:53)
[2020-01-25] MEDS ORDERED: Acetaminophen IV 1,000 MG/100 ML INFUS..BTL ONE (11:53)
[2020-01-25] MEDS ORDERED: Dexamethasone 4 MG/ML VIAL ONE (12:00)
[2020-01-25] MEDS ORDERED: Ondansetron 4 MG/2 ML VIAL ONE (12:00)
[2020-01-25] MEDS ORDERED: *HR* PHENYLEPHRINE 1,000 MCG/10 ML SYRINGE IVP ONE (12:14)
[2020-01-25] MEDS ORDERED: *HR* HYDROMORPHONE 2 MG/ML VIAL ONE (13:00)
[2020-01-25] MEDS ORDERED: Ondansetron 4 MG/2 ML VIAL IVP ONE (16:13)
[2020-01-25] MEDS ORDERED: *HR* HYDROmorphone PF 0.5 MG/0.5 ML SYRINGE IVP PRN (16:13)
[2020-01-25] MEDS ORDERED: *HR* Promethazine 25 MG/ML VIAL IVP PRN (17:47)
[2020-01-25] MEDS ORDERED: *HR* Dextrose 50 % in Water (Syg) 50 ML SYRINGE IVP PRN (17:47)
[2020-01-25] MEDS ORDERED: Haloperidol Lactate 5 MG/ML VIAL IVP PRN (17:47)
[2020-01-25] MEDS ORDERED: Dextrose Gel 15 GM/37.5 ML TUBE PO PRN ×2 (17:47)
[2020-01-25] MEDS ORDERED: Naloxone 0.4 MG/ML INJ IVP PRN (17:47)
[2020-01-25] MEDS ORDERED: Acetaminophen 325 MG TABLET PO PRN (17:47)
[2020-01-25] MEDS ORDERED: Capsaicin 0.025% 60 GM TUBE TP PRN (17:47)
[2020-01-25] MEDS ORDERED: Ondansetron 4 MG/2 ML VIAL IVP PRN ×2 (17:47)
[2020-01-25] MEDS ORDERED: D5% in Water 1,000 ML IVC PRN (17:47)
[2020-01-25] MEDS ORDERED: Albuterol 2.5 MG/3 ML NEBULIZER IH PRN (17:47)
[2020-01-25] MEDS ORDERED: traZODone 50 MG TABLET PO SCH (21:00)
[2020-01-25] MEDS ORDERED: Insulin LISPRO 300 UNITS/3 ML VIAL SQ SCH (21:00)
[2020-01-25] MEDS ORDERED: haloperidoL 5 MG TABLET PO SCH (21:00)
[2020-01-25] MEDS ORDERED: Pregabalin 50 MG CAPSULE PO SCH (22:00)
[2020-01-26 04:17] LABS: Hematocrit 31.2 % (37.5-50.1); Hemoglobin 9.9 g/dL (12.9-16.9); Mean Corpuscular HGB Conc 31.7 g/dL (31.6-35.5); Mean Corpuscular Hemoglobin 27.8 pg (28.0-33.3); Mean Corpuscular Volume 87.6 fL (83.0-100.0); Mean Platelet Volume 9.9 fL (9.4-12.4); Platelet Count 390 K/mcL (140-400); Red Blood Count 3.56 M/mcL (4.19-5.50); Red Cell Distribution Width 15.6 % (11.5-14.5)
[2020-01-26] MEDS: Ammonium Lactate 30 APPL/225 GM BOTTLE TP SCH ×2 (06:09→09:08)
[2020-01-26] MEDS: cloNIDine HCL 0.1 MG TABLET PO SCH ×2 (06:09→08:09)
[2020-01-26] MEDS: Sennosides/Docusate Sodium TABLET PO SCH ×2 (06:10→08:12)
[2020-01-26] MEDS: *HR* Heparin 5,000 UNIT/ML VIAL SQ SCH ×2 (06:14→08:09)
[2020-01-26] MEDS ORDERED: Pregabalin 50 MG CAPSULE PO SCH (08:00)
[2020-01-26] MEDS: haloperidoL 1 MG TABLET PO SCH ×2 (08:09→12:27)
[2020-01-26] MEDS ORDERED: Metoprolol XL (24 HR) Succ 25 MG TAB.ER.24H PO SCH (09:00)
[2020-01-26] MEDS ORDERED: PARoxetine 30 MG TABLET PO SCH (09:00)
[2020-01-26] MEDS ORDERED: Cholecalciferol (D-3) 1,000 UNIT (25MCG) TABLET PO SCH (09:00)
[2020-01-26] MEDS ORDERED: Isosorbide MONOnitrate (24 HR) 30 MG TAB.ER.24H PO SCH (09:00)
[2020-01-26] MEDS ORDERED: Aspirin 81 MG TAB.CHEW PO SCH (09:00)
[2020-01-26] MEDS ORDERED: Multivit/Ca/Min/Fe/FA 1 TAB TABLET PO SCH (09:00)
[2020-01-26] MEDS ORDERED: ARIPiprazole 10 MG TABLET PO SCH (09:00)
[2020-01-26] MEDS: Insulin LISPRO 300 UNITS/3 ML VIAL SQ SCH ×2 (09:08→12:31)
[2020-01-26] MEDS ORDERED: Tiotropium 18 MCG inhalation IH SCH (10:00)
[2020-01-26 12:21] VITALS: BP 117/74
[2020-01-27] MEDS ORDERED: polyethylene glycoL 3350 17 GM POWD.PACK PO SCH (17:45)
== END 2020-01-26 15:14 | DRG 492 ==
LOC: 3NENU 05:46 → EMEROOARM 05:46 → 3NENU 11:49 → SUATTDRO 01-16 07:47
PROVIDERS: ADMIT Internal Medicine; ATTEND Internal Medicine

== ENCOUNTER 2020-10-16 13:33 | Inpatient (IN) ==
[2020-10-16] MEDS ORDERED: CeFAZolin Syr 2,000MG/20 ML 2,000 MG/20 ML SYRINGE IVPB ONE (13:56)
[2020-10-16] MEDS ORDERED: Ringers Solution, Lactated 1,000 ML IVC SCH (14:00)
[2020-10-16] MEDS ORDERED: *HR* Midazolam HCl 2 MG/2 ML VIAL ONE (14:35)
[2020-10-16] MEDS ORDERED: *HR* FentaNYL (PF) 100 MCG/2 ML VIAL ONE (14:35)
[2020-10-16] MEDS ORDERED: *HR* Propofol 200 MG/20 ML VIAL IVP ONE (14:35)
[2020-10-16] MEDS ORDERED: Ondansetron 4 MG/2 ML VIAL ONE ×2 (14:41→18:11)
[2020-10-16] MEDS ORDERED: Lidocaine -MPF 2% 2 ML VIAL ONE (14:41)
[2020-10-16] MEDS ORDERED: Dexamethasone 4 MG/ML VIAL ONE ×2 (14:41→18:11)
[2020-10-16] MEDS ORDERED: Ondansetron ODT 4 MG TAB.RAPDIS SL PRN ×2 (15:16→19:46)
[2020-10-16] MEDS ORDERED: *HR* OxyCODONE/APAP 10/325 TABLET PO PRN ×2 (15:17→19:46)
[2020-10-16] MEDS ORDERED: Ondansetron 4 MG/2 ML VIAL IVP PRN ×2 (15:30→19:46)
[2020-10-16] MEDS ORDERED: *HR* HYDROmorphone PF 0.5 MG/0.5 ML SYRINGE IVP PRN ×2 (15:30→19:46)
[2020-10-16] MEDS ORDERED: D5% in Water 1,000 ML IVC PRN (21:15)
[2020-10-16] MEDS ORDERED: *HR* Dextrose 50 % in Water (Vial) 50 ML VIAL IVP PRN (21:15)
[2020-10-16] MEDS ORDERED: Dextrose Gel 15 GM/37.5 ML TUBE PO PRN ×2 (21:15)
[2020-10-16] MEDS: haloperidoL 5 MG TABLET PO SCH (21:37)
[2020-10-16 22:13] LABS: Basophils % 0.4 %; Eosinophils # 0.1 K/mcL (0.0-0.6); Eosinophils % 1.7 %; Hemoglobin 10.2 g/dL (12.9-16.9); Immature Granulocytes % 0.6 % (0-4); Lymphocytes # 0.8 K/mcL (0.6-4.6); Mean Corpuscular HGB Conc 31.9 g/dL (31.6-35.5); Mean Corpuscular Hemoglobin 27.6 pg (28.0-33.3); Mean Corpuscular Volume 86.7 fL (83.0-100.0); Mean Platelet Volume 10.1 fL (9.4-12.4); Monocytes # 0.2 K/mcL (0.0-1.3); Monocytes % 2.4 %; Neutrophils # 7.2 K/mcL (1.6-8.9); Platelet Count 262 K/mcL (140-400); Red Blood Count 3.69 M/mcL (4.19-5.50); Red Cell Distribution Width 14.1 % (11.5-14.5); Segmented Neutrophils % 84.9 %; White Blood Count 8.4 K/mcL (4.3-11.1)
[2020-10-16 22:29] LABS: Alanine Aminotransferase 15 Units/L (7-52); Albumin 3.1 g/dL (3.5-5.7); Albumin/Globulin Ratio 0.9 (1.1-2.2); Alkaline Phosphatase 145 Units/L (34-104); Aspartate Amino Transferase 21 Units/L (13-39); BUN/Creatinine Ratio 20 (6-26); Bilirubin,Total 0.3 mg/dL (0.3-1.0); Blood Urea Nitrogen 20 mg/dL (8-23); Calcium 8.3 mg/dL (8.6-10.3); Carbon Dioxide 22 mEq/L (23-29); Chloride 105 mEq/L (98-107); Globulin 3.3 g/dL (2.4-3.5); Glucose 277 mg/dL (70-105); Osmolality,Calculated 295 (280-300); Potassium 4.7 mEq/L (3.5-5.1); Sodium 136 mEq/L (136-145); Total Protein 6.4 g/dL (6.4-8.9); eGFR For African Americans > 60 (> 60); eGFR For Non-African Americans > 60 (> 60)
[2020-10-16] MEDS: CeFAZolin 2 GM/120 ML BAG IVPB SCH (23:44)
[2020-10-16] MEDS: Pregabalin 50 MG CAPSULE PO SCH (23:45)
[2020-10-16] MEDS: *HR* Heparin 5,000 UNIT/ML VIAL SQ SCH (23:45)
[2020-10-17] MEDS ORDERED: CeFAZolin 2 GM/120 ML BAG IVPB SCH
[2020-10-17 02:29] LABS: Basophils % 0.2 %; Eosinophils % 0.3 %; Hematocrit 31.2 % (37.5-50.1); Hemoglobin 9.7 g/dL (12.9-16.9); Immature Granulocytes % 0.6 % (0-4); Lymphocytes # 0.8 K/mcL (0.6-4.6); Lymphocytes % 8.1 %; Mean Corpuscular HGB Conc 31.1 g/dL (31.6-35.5); Mean Corpuscular Hemoglobin 27.7 pg (28.0-33.3); Mean Corpuscular Volume 89.1 fL (83.0-100.0); Mean Platelet Volume 10.4 fL (9.4-12.4); Monocytes # 0.3 K/mcL (0.0-1.3); Monocytes % 3.1 %; Neutrophils # 8.5 K/mcL (1.6-8.9); Nucleated Red Blood Cells 0.2 /100 WBC (0); Platelet Count 271 K/mcL (140-400); Red Cell Distribution Width 14.1 % (11.5-14.5); Segmented Neutrophils % 87.7 %; White Blood Count 9.7 K/mcL (4.3-11.1)
[2020-10-17 02:42] LABS: BUN/Creatinine Ratio 19 (6-26); Blood Urea Nitrogen 19 mg/dL (8-23); Calcium 8.1 mg/dL (8.6-10.3); Carbon Dioxide 25 mEq/L (23-29); Chloride 105 mEq/L (98-107); Glucose 253 mg/dL (70-105); Osmolality,Calculated 293 (280-300); Potassium 4.2 mEq/L (3.5-5.1); Sodium 136 mEq/L (136-145); eGFR For African Americans > 60 (> 60); eGFR For Non-African Americans > 60 (> 60)
[2020-10-17] MEDS: *HR* Heparin 5,000 UNIT/ML VIAL SQ SCH ×2 (05:22→17:01)
[2020-10-17] MEDS: Aspirin 81 MG TAB.CHEW PO SCH (07:46)
[2020-10-17] MEDS: ARIPiprazole 10 MG TABLET PO SCH (07:46)
[2020-10-17] MEDS: Multivit/Ca/Min/Fe/FA 1 TAB TABLET PO SCH (07:46)
[2020-10-17] MEDS: Magnesium Oxide 400 MG TABLET PO SCH ×2 (07:46→21:34)
[2020-10-17] MEDS: Cholecalciferol (D-3) 1,000 UNIT (25MCG) TABLET PO SCH (07:46)
[2020-10-17] MEDS: haloperidoL 5 MG TABLET PO SCH ×3 (07:46→21:34)
[2020-10-17] MEDS: PARoxetine 30 MG TABLET PO SCH (07:47)
[2020-10-17] MEDS: Metoprolol XL (24 HR) Succ 25 MG TAB.ER.24H PO SCH (07:47)
[2020-10-17] MEDS: cloNIDine HCL 0.1 MG TABLET PO SCH ×3 (07:47→21:34)
[2020-10-17] MEDS: Pregabalin 50 MG CAPSULE PO SCH ×3 (09:33→21:34)
[2020-10-17] MEDS: Insulin LISPRO 300 UNITS/3 ML VIAL SUBQ SCH ×3 (09:33→17:01)
[2020-10-17] MEDS: CeFAZolin 2 GM/120 ML BAG IVPB SCH ×2 (09:33→17:00)
[2020-10-18] MEDS: *HR* Heparin 5,000 UNIT/ML VIAL SQ SCH ×2 (05:56→19:08)
[2020-10-18 07:38] LABS: Hematocrit 30.8 % (37.5-50.1); Hemoglobin 9.4 g/dL (12.9-16.9); Mean Corpuscular HGB Conc 30.5 g/dL (31.6-35.5); Mean Corpuscular Hemoglobin 27.6 pg (28.0-33.3); Mean Corpuscular Volume 90.6 fL (83.0-100.0); Mean Platelet Volume 10.2 fL (9.4-12.4); Platelet Count 290 K/mcL (140-400); Red Cell Distribution Width 14.1 % (11.5-14.5); White Blood Count 7.9 K/mcL (4.3-11.1)
[2020-10-18 07:55] LABS: Alanine Aminotransferase 10 Units/L (7-52); Albumin 3.1 g/dL (3.5-5.7); Alkaline Phosphatase 127 Units/L (34-104); Aspartate Amino Transferase 15 Units/L (13-39); BUN/Creatinine Ratio 17 (6-26); Bilirubin,Total 0.2 mg/dL (0.3-1.0); Blood Urea Nitrogen 20 mg/dL (8-23); Calcium 8.4 mg/dL (8.6-10.3); Carbon Dioxide 29 mEq/L (23-29); Chloride 105 mEq/L (98-107); Globulin 3.2 g/dL (2.4-3.5); Glucose 178 mg/dL (70-105); Osmolality,Calculated 295 (280-300); Potassium 3.7 mEq/L (3.5-5.1); Sodium 139 mEq/L (136-145); Total Protein 6.3 g/dL (6.4-8.9); eGFR For African Americans > 60 (> 60); eGFR For Non-African Americans > 60 (> 60)
[2020-10-18] MEDS: Insulin LISPRO 300 UNITS/3 ML VIAL SUBQ SCH ×3 (10:26→19:11)
[2020-10-18] MEDS: ARIPiprazole 10 MG TABLET PO SCH (10:40)
[2020-10-18] MEDS: Metoprolol XL (24 HR) Succ 25 MG TAB.ER.24H PO SCH (10:40)
[2020-10-18] MEDS: Cholecalciferol (D-3) 1,000 UNIT (25MCG) TABLET PO SCH (10:41)
[2020-10-18] MEDS: haloperidoL 5 MG TABLET PO SCH ×3 (10:42→21:12)
[2020-10-18] MEDS: Multivit/Ca/Min/Fe/FA 1 TAB TABLET PO SCH (10:42)
[2020-10-18] MEDS: cloNIDine HCL 0.1 MG TABLET PO SCH ×3 (10:42→21:11)
[2020-10-18] MEDS: Magnesium Oxide 400 MG TABLET PO SCH ×2 (10:42→21:12)
[2020-10-18] MEDS: PARoxetine 30 MG TABLET PO SCH (10:42)
[2020-10-18] MEDS: Pregabalin 50 MG CAPSULE PO SCH ×3 (10:46→21:17)
[2020-10-18] MEDS: Aspirin 81 MG TAB.CHEW PO SCH (10:46)
[2020-10-18] MEDS ORDERED: Capsaicin 0.025% 60 GM TUBE TP PRN (14:58)
[2020-10-18] MEDS: Acetaminophen 325 MG TABLET PO SCH ×2 (19:10→21:12)
[2020-10-18] MEDS: Tiotropium 10 INH DOSE IH SCH ×2 (19:32→19:33)
[2020-10-18] MEDS: Baclofen 10 MG TABLET PO SCH (21:11)
[2020-10-18] MEDS: Sennosides/Docusate Sodium TABLET PO SCH (21:12)
[2020-10-19] MEDS: *HR* Heparin 5,000 UNIT/ML VIAL SQ SCH ×2 (06:05→18:02)
[2020-10-19] MEDS: Metoprolol XL (24 HR) Succ 25 MG TAB.ER.24H PO SCH (10:24)
[2020-10-19] MEDS: ARIPiprazole 10 MG TABLET PO SCH (10:24)
[2020-10-19] MEDS: cloNIDine HCL 0.1 MG TABLET PO SCH ×3 (10:24→21:29)
[2020-10-19] MEDS: Cholecalciferol (D-3) 1,000 UNIT (25MCG) TABLET PO SCH (10:24)
[2020-10-19] MEDS: hydrOXYzine pamoate 25 MG CAPSULE PO SCH (10:24)
[2020-10-19] MEDS: PARoxetine 30 MG TABLET PO SCH (10:24)
[2020-10-19] MEDS: Magnesium Oxide 400 MG TABLET PO SCH ×2 (10:25→21:29)
[2020-10-19] MEDS: Sennosides/Docusate Sodium TABLET PO SCH ×2 (10:25→21:29)
[2020-10-19] MEDS: Aspirin 81 MG TAB.CHEW PO SCH (10:26)
[2020-10-19] MEDS: haloperidoL 5 MG TABLET PO SCH ×2 (10:26→21:30)
[2020-10-19] MEDS: Acetaminophen 325 MG TABLET PO SCH ×3 (10:26→21:29)
[2020-10-19] MEDS: Pregabalin 50 MG CAPSULE PO SCH ×3 (10:26→21:29)
[2020-10-19] MEDS: Multivit/Ca/Min/Fe/FA 1 TAB TABLET PO SCH (10:26)
[2020-10-19] MEDS: polyethylene glycoL 3350 17 GM POWD.PACK PO SCH (10:27)
[2020-10-19] MEDS: Insulin LISPRO 300 UNITS/3 ML VIAL SUBQ SCH ×4 (10:28→20:29)
[2020-10-19] MEDS: Baclofen 10 MG TABLET PO SCH (21:29)
[2020-10-20] MEDS: *HR* Heparin 5,000 UNIT/ML VIAL SQ SCH ×2 (06:30→16:34)
[2020-10-20] MEDS: Insulin LISPRO 300 UNITS/3 ML VIAL SUBQ SCH ×4 (09:29→20:56)
[2020-10-20] MEDS: Insulin DETEMIR 100 UNIT/ML X5UNITS SUBQ SCH (09:36)
[2020-10-20] MEDS: cloNIDine HCL 0.1 MG TABLET PO SCH ×3 (09:37→20:47)
[2020-10-20] MEDS: Cholecalciferol (D-3) 1,000 UNIT (25MCG) TABLET PO SCH (09:37)
[2020-10-20] MEDS: Magnesium Oxide 400 MG TABLET PO SCH ×2 (09:38→20:46)
[2020-10-20] MEDS: ARIPiprazole 10 MG TABLET PO SCH (09:38)
[2020-10-20] MEDS: Acetaminophen 325 MG TABLET PO SCH ×3 (09:39→20:46)
[2020-10-20] MEDS: haloperidoL 5 MG TABLET PO SCH ×2 (09:39→20:47)
[2020-10-20] MEDS: Multivit/Ca/Min/Fe/FA 1 TAB TABLET PO SCH (09:39)
[2020-10-20] MEDS: Metoprolol XL (24 HR) Succ 25 MG TAB.ER.24H PO SCH (09:40)
[2020-10-20] MEDS: hydrOXYzine pamoate 25 MG CAPSULE PO SCH (09:40)
[2020-10-20] MEDS: Aspirin 81 MG TAB.CHEW PO SCH (09:40)
[2020-10-20] MEDS: polyethylene glycoL 3350 17 GM POWD.PACK PO SCH (09:41)
[2020-10-20] MEDS: PARoxetine 30 MG TABLET PO SCH (09:41)
[2020-10-20] MEDS: Pregabalin 50 MG CAPSULE PO SCH ×3 (09:43→20:45)
[2020-10-20] MEDS: Tiotropium 10 INH DOSE IH SCH (20:09)
[2020-10-20] MEDS: Baclofen 10 MG TABLET PO SCH (20:46)
[2020-10-21] MEDS: Tiotropium 10 INH DOSE IH SCH (01:34)
[2020-10-21] MEDS: Ringers Solution, Lactated 1,000 ML IVC SCH ×2 (01:44→10:35)
[2020-10-21] MEDS: *HR* Heparin 5,000 UNIT/ML VIAL SQ SCH (06:22)
[2020-10-21] MEDS: Insulin LISPRO 300 UNITS/3 ML VIAL SUBQ SCH ×2 (10:21→12:28)
[2020-10-21] MEDS: polyethylene glycoL 3350 17 GM POWD.PACK PO SCH (10:24)
[2020-10-21] MEDS: Aspirin 81 MG TAB.CHEW PO SCH (10:35)
[2020-10-21] MEDS: Magnesium Oxide 400 MG TABLET PO SCH (10:36)
[2020-10-21] MEDS: ARIPiprazole 10 MG TABLET PO SCH (10:36)
[2020-10-21] MEDS: Insulin DETEMIR 100 UNIT/ML X5UNITS SUBQ SCH (10:36)
[2020-10-21] MEDS: Cholecalciferol (D-3) 1,000 UNIT (25MCG) TABLET PO SCH (10:37)
[2020-10-21] MEDS: Multivit/Ca/Min/Fe/FA 1 TAB TABLET PO SCH (10:37)
[2020-10-21] MEDS: haloperidoL 5 MG TABLET PO SCH (10:37)
[2020-10-21] MEDS: Metoprolol XL (24 HR) Succ 25 MG TAB.ER.24H PO SCH (10:37)
[2020-10-21] MEDS: PARoxetine 30 MG TABLET PO SCH (10:38)
[2020-10-21] MEDS: Pregabalin 50 MG CAPSULE PO SCH (10:38)
[2020-10-21] MEDS: cloNIDine HCL 0.1 MG TABLET PO SCH (10:38)
[2020-10-21] MEDS: Acetaminophen 325 MG TABLET PO SCH (10:38)
[2020-10-21] MEDS: hydrOXYzine pamoate 25 MG CAPSULE PO SCH (10:38)
[2020-10-21 13:24] LABS: Adenovirus Not Detected (Not Detect); Bordetella Pertussis Not Detected (Not Detect); Chlamydophila pneumoniae Not Detected (Not Detect); Coronavirus 229E Not Detected (Not Detect); Coronavirus HKU1 Not Detected (Not Detect); Coronavirus NL63 Not Detected (Not Detect); Coronavirus OC43 Not Detected (Not Detect); Human Metapneumovirus Not Detected (Not Detect); Human Rhinovirus/Enterovirus Not Detected (Not Detect); Influenza A Subtype 2009 H1 Not Detected (Not Detect); Influenza B Not Detected (Not Detect); Mycoplasma pneumoniae Not Detected (Not Detect); Parainfluenza Virus 1 Not Detected (Not Detect); Parainfluenza Virus 2 Not Detected (Not Detect); Parainfluenza Virus 3 Not Detected (Not Detect); Parainfluenza Virus 4 Not Detected (Not Detect); Respiratory Syncytial Virus Not Detected (Not Detect); SARS-CoV-2 Not Detected (Not Detect)
[2020-10-21] MEDS ORDERED: *HR* HYDROmorphone PF 0.5 MG/0.5 ML SYRINGE IVP PRN ×2 (16:04→22:16)
[2020-10-21] MEDS ORDERED: Ondansetron 4 MG/2 ML VIAL IVP PRN ×2 (16:04→22:16)
[2020-10-21] MEDS ORDERED: *HR* OxyCODONE Immed Rel 5 MG TABLET PO PRN ×2 (16:04→22:16)
[2020-10-21] MEDS ORDERED: *HR* FentaNYL (PF) 100 MCG/2 ML VIAL ONE ×3 (16:12→20:12)
[2020-10-21] MEDS ORDERED: ceFAZolin 2,000 MG in 0.9 % Sodium Chloride 100 ML IVPB ONE (16:20)
[2020-10-21] MEDS ORDERED: Dexamethasone 4 MG/ML VIAL ONE (16:28)
[2020-10-21] MEDS ORDERED: *HR* Succinylcholine 200 MG/10 ML VIAL IVP ONE (16:28)
[2020-10-21] MEDS ORDERED: *HR* Midazolam HCl 2 MG/2 ML VIAL ONE (16:30)
[2020-10-21] MEDS ORDERED: *HR* PHENYLEPHRINE 1,000 MCG/10 ML SYRINGE IVP ONE (17:12)
[2020-10-21] MEDS ORDERED: *HR* Rocuronium Bromide 50 MG/5 ML VIAL ONE (17:24)
[2020-10-21] MEDS ORDERED: Ondansetron 4 MG/2 ML VIAL ONE (20:40)
[2020-10-21] MEDS ORDERED: *HR* OxyCODONE/APAP 10/325 TABLET PO PRN (22:16)
[2020-10-21] MEDS ORDERED: Capsaicin 0.025% 60 GM TUBE TP PRN (22:16)
[2020-10-21] MEDS ORDERED: Dextrose Gel 15 GM/37.5 ML TUBE PO PRN ×2 (22:16)
[2020-10-21] MEDS ORDERED: Ondansetron ODT 4 MG TAB.RAPDIS SL PRN (22:16)
[2020-10-21] MEDS ORDERED: *HR* Dextrose 50 % in Water (Vial) 50 ML VIAL IVP PRN (22:16)
[2020-10-21] MEDS ORDERED: D5% in Water 1,000 ML IVC PRN (22:16)
[2020-10-21] MEDS ORDERED: Ringers Solution, Lactated 1,000 ML IVC SCH (22:16)
[2020-10-22 01:27] LABS: Basophils # 0.1 K/mcL (0.0-0.2); Basophils % 0.5 %; Eosinophils # 0.1 K/mcL (0.0-0.6); Eosinophils % 0.6 %; Hematocrit 31.8 % (37.5-50.1); Hemoglobin 9.8 g/dL (12.9-16.9); Immature Granulocytes % 2.8 % (0-4); Lymphocytes # 0.9 K/mcL (0.6-4.6); Lymphocytes % 9.4 %; Mean Corpuscular HGB Conc 30.8 g/dL (31.6-35.5); Mean Corpuscular Hemoglobin 27.5 pg (28.0-33.3); Mean Corpuscular Volume 89.1 fL (83.0-100.0); Mean Platelet Volume 10.1 fL (9.4-12.4); Monocytes # 0.2 K/mcL (0.0-1.3); Monocytes % 2.3 %; Neutrophils # 7.9 K/mcL (1.6-8.9); Platelet Count 339 K/mcL (140-400); Red Blood Count 3.57 M/mcL (4.19-5.50); Red Cell Distribution Width 14.5 % (11.5-14.5); Segmented Neutrophils % 84.4 %; White Blood Count 9.4 K/mcL (4.3-11.1)
[2020-10-22 01:50] LABS: BUN/Creatinine Ratio 23 (6-26); Blood Urea Nitrogen 21 mg/dL (8-23); Calcium 8.7 mg/dL (8.6-10.3); Carbon Dioxide 26 mEq/L (23-29); Chloride 107 mEq/L (98-107); Glucose 199 mg/dL (70-105); Osmolality,Calculated 299 (280-300); Potassium 4.5 mEq/L (3.5-5.1); Sodium 140 mEq/L (136-145); eGFR For African Americans > 60 (> 60); eGFR For Non-African Americans > 60 (> 60)
[2020-10-22] MEDS ORDERED: Tiotropium 10 INH DOSE IH SCH (09:00)
[2020-10-22] MEDS: Insulin LISPRO 300 UNITS/3 ML VIAL SUBQ SCH ×3 (10:45→18:12)
[2020-10-22] MEDS: Insulin DETEMIR 100 UNIT/ML X5UNITS SUBQ SCH (10:46)
[2020-10-22] MEDS: Cholecalciferol (D-3) 1,000 UNIT (25MCG) TABLET PO SCH (10:47)
[2020-10-22] MEDS: PARoxetine 30 MG TABLET PO SCH (10:48)
[2020-10-22] MEDS: Pregabalin 50 MG CAPSULE PO SCH ×3 (10:49→23:01)
[2020-10-22] MEDS: cloNIDine HCL 0.1 MG TABLET PO SCH ×3 (10:49→18:11)
[2020-10-22] MEDS: Magnesium Oxide 400 MG TABLET PO SCH ×2 (10:49→21:23)
[2020-10-22] MEDS: hydrOXYzine pamoate 25 MG CAPSULE PO SCH (10:49)
[2020-10-22] MEDS: Acetaminophen 325 MG TABLET PO SCH ×3 (10:50→21:23)
[2020-10-22] MEDS: ARIPiprazole 10 MG TABLET PO SCH (10:50)
[2020-10-22] MEDS: Aspirin 81 MG TAB.CHEW PO SCH (10:51)
[2020-10-22] MEDS: haloperidoL 5 MG TABLET PO SCH ×2 (10:51→21:22)
[2020-10-22] MEDS: Metoprolol XL (24 HR) Succ 25 MG TAB.ER.24H PO SCH (11:06)
[2020-10-22] MEDS: polyethylene glycoL 3350 17 GM POWD.PACK PO SCH (11:08)
[2020-10-22] MEDS: Multivit/Ca/Min/Fe/FA 1 TAB TABLET PO SCH (11:10)
[2020-10-22] MEDS: *HR* Heparin 5,000 UNIT/ML VIAL SQ SCH (18:08)
[2020-10-22] MEDS ORDERED: Insulin LISPRO 300 UNITS/3 ML VIAL SUBQ SCH (21:00)
[2020-10-22] MEDS ORDERED: Baclofen 10 MG TABLET PO SCH (21:00)
[2020-10-23 02:44] LABS: Hematocrit 29.1 % (37.5-50.1); Mean Corpuscular HGB Conc 30.9 g/dL (31.6-35.5); Mean Corpuscular Hemoglobin 28.1 pg (28.0-33.3); Mean Corpuscular Volume 90.9 fL (83.0-100.0); Mean Platelet Volume 10.3 fL (9.4-12.4); Platelet Count 287 K/mcL (140-400); Red Cell Distribution Width 14.8 % (11.5-14.5); White Blood Count 8.2 K/mcL (4.3-11.1)
[2020-10-23 02:59] LABS: BUN/Creatinine Ratio 20 (6-26); Blood Urea Nitrogen 25 mg/dL (8-23); Calcium 8.4 mg/dL (8.6-10.3); Carbon Dioxide 28 mEq/L (23-29); Chloride 105 mEq/L (98-107); Glucose 145 mg/dL (70-105); Osmolality,Calculated 297 (280-300); Potassium 3.8 mEq/L (3.5-5.1); Sodium 140 mEq/L (136-145); eGFR For African Americans > 60 (> 60); eGFR For Non-African Americans 59 (> 60)
[2020-10-23] MEDS: *HR* Heparin 5,000 UNIT/ML VIAL SQ SCH (05:49)
[2020-10-23] MEDS: ARIPiprazole 10 MG TABLET PO SCH (08:53)
[2020-10-23] MEDS: Magnesium Oxide 400 MG TABLET PO SCH (08:54)
[2020-10-23] MEDS: Cholecalciferol (D-3) 1,000 UNIT (25MCG) TABLET PO SCH (08:54)
[2020-10-23] MEDS: cloNIDine HCL 0.1 MG TABLET PO SCH (08:54)
[2020-10-23] MEDS: hydrOXYzine pamoate 25 MG CAPSULE PO SCH (08:54)
[2020-10-23] MEDS: polyethylene glycoL 3350 17 GM POWD.PACK PO SCH (08:54)
[2020-10-23] MEDS: Multivit/Ca/Min/Fe/FA 1 TAB TABLET PO SCH (08:54)
[2020-10-23] MEDS: PARoxetine 30 MG TABLET PO SCH (08:55)
[2020-10-23] MEDS: Acetaminophen 325 MG TABLET PO SCH (08:55)
[2020-10-23] MEDS: Aspirin 81 MG TAB.CHEW PO SCH (08:55)
[2020-10-23] MEDS: Pregabalin 50 MG CAPSULE PO SCH (08:55)
[2020-10-23] MEDS: haloperidoL 5 MG TABLET PO SCH (08:55)
[2020-10-23] MEDS: Metoprolol XL (24 HR) Succ 25 MG TAB.ER.24H PO SCH (08:59)
[2020-10-23] MEDS ORDERED: cephALEXin 500 MG CAPSULE PO SCH (09:00)
[2020-10-23] MEDS ORDERED: CloNIDine Patch 0.1 MG PATCH (WEEKLY) TD SCH (09:00)
[2020-10-23] MEDS: Insulin DETEMIR 100 UNIT/ML X5UNITS SUBQ SCH (09:03)
[2020-10-23] MEDS: Insulin LISPRO 300 UNITS/3 ML VIAL SUBQ SCH (09:03)
[2020-10-23 11:28] VITALS: BP 123/68
== END 2020-10-23 11:56 | disposition other institution (70) | DRG 477 ==
LOC: SAMDAY 13:33 → 3NENU 13:33 → SUATTDRO 10-20 17:06
PROVIDERS: ADMIT Podiatrist Foot & Ankle Surgery; ATTEND Internal Medicine